=== PATIENT | male | born 1995 | race Caucasian/White ===

== ENCOUNTER 2016-05-09 14:38 | Inpatient (IN) | payer OTHER ==
--- NOTE | 2016-05-09 14:35 | EDPHY ---
H & P Constitutional: Initial Vital Signs Temperature (C) 37 C 05/09/16 15:10 Heart Rate 85 05/09/16 15:10 Respiratory Rate 17 05/09/16 15:10 Blood Pressure 174/101 H 05/09/16 15:10 O2 Sat (%) 96 05/09/16 15:10 O2 Delivery Mode Room Air Allergies/Adverse Reactions: No Known Allergies Allergy (Unverified 05/09/16 15:10) Home Medications: Medication Instructions Recorded NK [No Known Home Meds] 05/09/16 Medical Decision Making ED Course/Re-evaluation: CHIEF COMPLAINT: Psychiatric evaluation HISTORY OF PRESENT ILLNESS: The patient is a 21 year old male presenting with increased depression and suicidal thoughts. The patient is a [employer] student. He was at [facility], [facility] [place] [facility] today. He feels his depression is worse than usual and he has been having suicidal ideation. The patient used to see a psychiatrist his senior year of high school. He was placed on Respinol, but stopped taking it after he moved here for school. REVIEW OF SYSTEMS: A 10 point review of systems was performed and is negative with the exception of the elements mentioned in the history of present illness. PHYSICAL EXAM: General Appearance: Alert, well hydrated, appropriate, and non-toxic appearing. Head: Atraumatic without scalp tenderness or obvious injury Eyes: Pupils equal, round, reactive to light and accommodation, EOMI, no trauma , no injection. Ears: Clear bilaterally, no perforation, normal landmarks Nose: Atraumatic, no rhinorrhea, clear. Throat: There is no erythema or exudates, no lesions, normal tonsils, mucus membranes moist. Neck: Supple, 2+ carotid upstroke, nontender, no lymphadenopathy. Respiratory: No retractions, no distress, no wheezes, and no accessory muscle use. Lungs are clear to auscultation bilaterally. Cardiovascular: Regular rate and rhythm, no murmurs, rubs, or gallops. Bilateral carotid, radial, dorsalis pedis, and posterior tibial pulses intact. Good capillary refill all extremities. Gastrointestinal: Abdomen is soft, nontender, non-distended, no masses, no rebound, no guarding, no peritoneal signs. Musculoskeletal: Normal active ROM of all extremities, atraumatic. Neurological: Alert, appropriate, and interactive. The patient has normal DTRs and non-focal cranial nerves, motor, sensory, and cerebellar exam. Skin: No rashes, good turgor, no nodules on palpation. Past medical history: Depression Past surgical history: Denies Family history: Noncontributory Social history: Sophomore at . From [place]. DIFFERENTIAL DIAGNOSIS: The differential diagnosis for the patient's depression included but was not limited to functional and major depression, situational depression, medication side effect, drugs, and alcohol abuse. MEDICAL DECISION MAKING: Patient is in no acute distress and is hemodynamically stable. Patient has known history of psychiatric disorders and is here for evaluation. I evaluated the patient, he tells me he feels more depressed than usual with suicidal ideation. We are awaiting psychiatric team's evaluation. Report Scribed for: Lio Fritz Report Scribed by: Viky Muñiz Date of Report: 05/09/16 Time of Report: 15:25
[2016-05-09 15:22] LABS: % IMMATURE GRANULYOCYTES 0.4 % (0.0-1.1); ABSOLUTE IMMATURE GRANULOCYTES 0.04 10^3/uL (0.00-0.10); ADD DIFF? NO; ADD MORPH? NO; ADD SCAN? NO; ATYPICAL LYMPHOCYTE FLAG 0 (0-99); FRAGMENT RBC FLAG 0 (0-99); HEMOGLOBIN 16.8 g/dL (13.7-17.5); LEFT SHIFT FLG 0 (0-99); LIPEMIA HEMOLYSIS FLAG 90 (0-99); MEAN CELL HEMOGLOBIN CONCENTR. 34.3 g/dL (32.4-36.7); MEAN CELL VOLUME 87.5 fL (81.5-99.8); MEAN PLATELET VOLUME 12.1 fL (8.7-11.7); PLATELET CLUMPS FLAG 0 (0-99); PLATELET COUNT 217 10^3/uL (150-400); RED CELL DISTRIBUTION WIDTH 13.1 % (11.5-15.2)
[2016-05-09 15:59] LABS: ANION GAP 14 mEq/L (8-16); CALCIUM 9.7 mg/dL (8.5-10.4); CARBON DIOXIDE 25 mEq/l (22-31); CHLORIDE 103 mEq/L (97-110); CREATININE 0.8 mg/dL (0.7-1.3); ETHANOL SERUM < 10 mg/dL (0-10); GLOMERULAR FILTRATION RATE > 60; GLUCOSE 90 mg/dL (70-100); POTASSIUM 3.9 mEq/L (3.5-5.2); SODIUM 142 mEq/L (134-144)
[2016-05-09] MEDS ORDERED: NICOTINE POLACRILEX 2 MG GUM B PRN (21:35)
[2016-05-09] MEDS ORDERED: MAG HYDROX/AL HYDROX/SIMETH 30 ML UDCUP PO PRN (21:35)
[2016-05-09] MEDS ORDERED: diphenhydrAMINE 25 MG CAP PO PRN (21:35)
[2016-05-09] MEDS ORDERED: MAGNESIUM HYDROXIDE 30 ML UDCUP PO PRN (21:35)
[2016-05-09] MEDS ORDERED: ACETAMINOPHEN 325 MG TAB PO PRN (21:35)
[2016-05-09] MEDS ORDERED: LORazepam 0.5 MG TAB PO PRN (21:35)
[2016-05-10] MEDS: ESCITALOPRAM OXALATE 10 MG TAB PO SCH (12:18)
--- NOTE | 2016-05-10 15:01 | BCON ---
[f rep ] BEHAVIORAL HEALTH CONSULTATION INTERNAL MEDICINE CONSULTATION DATE OF CONSULTATION: 05/10/2016 REFERRING PHYSICIAN: Ade Barber MD REASON FOR CONSULTATION: Medical clearance for inpatient behavioral health stay. HISTORY OF PRESENT ILLNESS: Mr. Bañuelos came to the emergency department with increased depression and suicidal thoughts. He was evaluated by the mental health team and admitted for further psychiatric care. He currently is without any complaints. He says he is feeling better. PAST MEDICAL HISTORY: He denies any history of any medical conditions. He has had wisdom teeth extracted. MEDICATIONS: He was on no medications. ALLERGIES: There are no known drug allergies. SOCIAL HISTORY: He is a student at the [employer]. He lives with roommates. He is a regular marijuana user and tobacco smoker. FAMILY HISTORY: There is history of alcoholism and psychiatric illness, but there is no specific history of medical issues. REVIEW OF SYSTEMS: He denies pain, dyspnea, cough, fever, chills. He has had some weight loss while he has been feeling depressed, and otherwise a 10-point review of systems is negative. PHYSICAL EXAM: VITAL SIGNS: Blood pressure is 113/56, heart rate is 80, respiratory rate is 12, oxygen saturation is 95% on room air, temperature is 36.6 degrees centigrade. His weight is 72.6 kg for a body mass index of 20. GENERAL: This is a well-nourished, well-developed, thin man, appears his chronologic age, cooperative and in no acute distress. HEENT: Extraocular movements are intact. Pupils are equal, round and reactive to light. Mucous membranes are moist. Dentition is in good condition. NECK: Supple. HEART: Regular rate and rhythm with no murmurs, rubs, or gallops. LUNGS: Clear to auscultation bilaterally. ABDOMEN: Soft, nontender, nondistended with normoactive bowel sounds. EXTREMITIES: There is no cyanosis, clubbing, or edema. NEUROLOGIC: He is alert and oriented x3. Cranial nerves 2-12 are grossly intact. There is no focal weakness. Sensation is intact to light touch. LABORATORY STUDIES: Drawn in the emergency department, CBC revealed a slightly elevated white blood cell count of 9.76 with no left shift. Serum chemistry showed normal renal function and electrolytes. Toxicology screen in the serum was negative for ethyl alcohol, and the urine was non-negative for marijuana but negative for other substances of abuse. ASSESSMENT AND RECOMMENDATIONS: 1. Mental health issues. Pending further evaluation and management per Psychiatry and the mental health team. 2. Tobacco dependence syndrome. He reports that he would like to quit and he was encouraged to stop smoking tobacco. 3. Marijuana use disorder. He might benefit from specific substance abuse counseling. I see no medical contraindications to this patient's continued stay in the inpatient behavioral health unit or to any psychiatric medications or procedures. Thank you very much for involving me in the care of this patient. Please do not hesitate to contact me or the hospitalist service should there be need for further medical evaluation. /[id number]/MODL MTDD
[2016-05-11] MEDS: ESCITALOPRAM OXALATE 10 MG TAB PO SCH (08:20)
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
[2016-05-12] MEDS: ESCITALOPRAM OXALATE 10 MG TAB PO SCH (08:16)
[2016-05-13 06:19] VITALS: BP 153/64; PULSE 82; RESP 12; TEMP 97.4; O2SAT 97
[2016-05-13] MEDS: ESCITALOPRAM OXALATE 10 MG TAB PO SCH (08:27)
--- NOTE | 2016-05-13 13:25 | BDS ---
[f rep st] BEHAVIORAL HEALTH DISCHARGE SUMMARY REASON FOR ADMISSION: Patient is a 21-year-old male with a history of depression and recur rent suicidal ideation. He was admitted to the hospital after having gone to the CAPS program at the [facility] reporting suicidal thoughts. He was placed on an M1 hold and transferred for further evaluation. [facility] fo r further evaluation and treatment. A full description of the events preceding admission can be foun d in his admission history. ADMITTING DIAGNOSES: 1. Major depressive disorder, recurrent, severe, without psychosis. 2. Possible underlying dysthymic disorder. 3. Separation from natural supports. 4. Academic stress. ADMISSION PHYSICAL EXAMINATION: Performed by Dr. Natanael Neely shows no acute physical findings. ADMISSION LABORATORY: CBC showed a white count slightly up at 9.76, otherwise normal. Serum senior analytical chemist red were normal. TSH was slightly low at 0.399. Urine drug screen is positive for cannabis. HOSPITAL COURSE: Patient was admitted to the [facility] inpatient unit on an M1 hold. He was pleasant, cooperative, and engaging, and seemed to be genuinely motivated for change. He brendan cribed significant physiological symptoms of depression and was agreeable to a trial of Lexapro. Thi s was begun at 10 mg on the first day of his hospitalization. He tolerated this well with no side ef fects. Patient was engaged in individual, group, and milieu psychotherapies through the weekend, and stated on Friday when I returned that he very much appreciated and benefitted from these. He was seen by Avtar Barber in my absence and she concurred with the treatment plan. There was a statement that he may have been treated for bipolar disorder when he was in high school, though we did not obtain co nvincing historical information that would validate this, and he tolerated the medications well. CONDITION ON DISCHARGE: Stable. Patient's affect was significantly brighter, and he was having no t houghts of suicide. He was tolerating his medications well with no side effects. He was forward thi nking and hopeful. DISCHARGE MEDICATIONS: Lexapro 10 mg p.o. daily. DISPOSITION: Patient left the hospital with his family, who had come out from [place]. FOLLOWUP: With the [facility] per intensive care nurse arrangement. LEGAL COURSE: Patient was converted to a voluntary status at the expiration of his M1 hold. /[id number]/MODL
--- NOTE | 2016-05-13 13:40 | BAPA ---
[f rep st] ADMISSION PSYCHIATRIC ASSESSMENT DATE OF SERVICE: 05/10/2016 CHIEF COMPLAINT: "I just got overwhelmed with the thought of killing myself." HISTORY OF PRESENT ILLNESS: Patient is a 21-year-old male who was brought in by the police on an M1 hold after presenting to the CAPS Program at [facility] reporting suicidal idea tion. He is a student at in psychology and states that he has been struggling recently. He repor ts "I am always having thoughts of suicide, since I can remember." He states that these thoughts how ever have been increased over the past week for no reason that he can identify. He states that he fe els "overloaded" by academic stress and feels very lonely. He states that since coming to [place] f rom his home in [place] that he has been unable to establish friends. He did have a girlfrien d but they broke up and she remains a friend to him, though is his only social contact. He states th at he has been feeling "intense sadness" with frequent crying spells in which he states that he will become overwhelmed and literally drop to his knees and begin sobbing. He feels helpless and hopeless , homesick and misses his friends and family in [place]. He is also worried about the stress in his parents' marriage and that they may be . He sees them at times as being critical and is afraid that they will not support his decision to decrease his overall class load. He described his mood as "sad" and states that he has poor energy and motivation, poor attention and concentratio n, and poor appetite with a 10 pound weight loss over the last month. He states his sleep is inconsi stent, "too much or not enough." While he states he did not have a specific plan to harm himself, he felt unsafe to be out of the hospital and was asking for help. PAST PSYCHIATRIC HISTORY: The patient was prescribed Risperdal during his senior year of high school for what he believes was a diagnosis of bipolar disorder. He states he took this for 3-4 months, bu t they noticed no difference and had significant side effects. He has never had a trial of an antid epressant. He has had no previous psychiatric hospitalizations or suicide attempts. He did see a navyast briefly in high school. CURRENT MEDICATIONS: None. PAST MEDICAL HISTORY: Noncontributory. He denies any history of central nervous system disease. SOCIAL HISTORY: The patient was born and raised in [place]. He has one half-sister. His par ents continue to live in [place] [facility], and he states that he is "worried they may be splitting up." He states that his father has "anger issues" and is really controlling. He lives with 2 roommates, though does not know them well. He has trouble interacting with peers because "I don't think I have anything worthwhile to say." SUBSTANCE ABUSE HISTORY: Patient uses alcohol approximately 1 time per month and marijuana every oth er day. He states that he smokes 3-5 cigarettes per day. FAMILY HISTORY: The patient's father has been treated for depression and anxiety and has a paternal aunt who has schizophrenia. ADMISSION LABORATORY: CBC shows a white count slightly up at 9.76, otherwise normal. Serum chemistr ies are normal. TSH is slightly low at 0.399. Urine drug screen is positive for marijuana. MENTAL STATUS EXAMINATION: Reveals a tall, thin, though healthy-appearing male. He is wel l groomed, pleasant and cooperative and displays a calm and pleasant demeanor. His affect is blunted ,somewhat dysphoric,though stable and appropriate. His mood is described as "depressed." His though t process is linear and goal directed. His thought content reveals no evidence of psychosis. He is alert and oriented to person, place, time, and situation, and his sensorium is clear. He currently d enies any specific intent to harm himself,though continues to endorse active thoughts of suicide. Hi s intellect appears to be at least average as evidenced by his educational history,fund of knowledge, and vocabulary. His insight and judgment appear to be good. IMPRESSION: Major depressive disorder, recurrent, severe without psychosis. Possible dysthymic diso rder. Separation from natural supports. Social isolation. Academic stress. The patient is a pleasant 21-year-old male who presents at this time feeling overwhelmed an d lonely and unable to effectively cope with his current level of stress. Despite psychosocial issue s, it does appear he has many physiologic markers for depression. He states that he was diagnosed bi polar in high school and treated with Risperdal, though was unable to obtain any specific symptoms t hat would have led to this diagnosis, and I do not myself see evidence at this time of any bipolar sy mptoms by his current presentation or history. I did discuss with him the potential risks of taking antidepressants, if in fact he is bipolar, and he states that in his mind he has only ever struggled with depression and anxiety. I reviewed various options for him in regard to psychotropic medication s and he is agreeable to a trial of Lexapro. We reviewed the risks, benefits, and alternatives of th is including the suicidal adverse events warnings for young adults. Will start at 10 mg and monitor. We will also engage in individual, group, and milieu psychotherapies, possible family psychotherapy , and active discharge planning. Estimated length of stay is 3-5 days. /[id number]/MODL
== END 2016-05-13 12:55 | disposition home or self-care (01) | DRG 880 ==
LOC: BBEH 21:10
PROVIDERS: ADMIT Psychiatry & Neurology Behavioral Neurology & Neuropsychiatry; ATTEND Psychiatry & Neurology Psychiatry
DX: R45.851 Suicidal ideations (principal); F33.2 Major depressive disorder, recurrent severe without psychotic features; F34.1 Dysthymic disorder; F17.210 Nicotine dependence, cigarettes, uncomplicated; F12.90 Cannabis use, unspecified, uncomplicated
CPT/HCPCS: 80305; G0480

== ENCOUNTER 2016-06-10 14:53 | Emergency (ER) | payer OTHER ==
[2016-06-10 15:15] VITALS: RESP 16; O2SAT 96
--- NOTE | 2016-06-10 16:42 | EDPHY ---
H & P Stated Complaint: Hit head, NO LOC, jaw pain Time Seen by Provider: 06/10/16 16:35 HPI/ROS: CHIEF COMPLAINT: " I think I broke my jaw" HISTORY OF PRESENT ILLNESS: 21-year-old male arrives via private vehicle not a trauma activation complaining of acute left mandible on left temporal pain after he sustained a mechanical fall at home few hours ago. No alcohol or intoxicants use. Not a syncopal episode. No midline C-spine pain. His primary complaint is left temporal pain and left mandible pain, decreased range of motion of his TMJ, malalignment of dentition. No intraoral bleeding or taste of blood. No peripheral paresthesia, weakness, numbness. No diplopia. REVIEW OF SYSTEMS: A ten point review of systems was performed and is negative with the exception of the items mentioned in the HPI PAST MEDICAL/SURGICAL HISTORY: no anticoagulant use, no relevant medical/ surgical history SOCIAL HISTORY: denies alcohol use at time of incident PHYSICAL EXAM 1) GENERAL: Well-developed, well-nourished, alert and oriented. Answering questions appropriately. 2) HEAD: Normocephalic, left frontal temporal oral abrasion, hematoma, tenderness 3) HEENT: Pupils equal, round, reactive to light bilaterally. Negative Horners. Nasopharynx, oropharynx, clear. No deformity or angulation of nose. No septal hematoma. No rhinorrhea. No oral trauma. extraocular movements not elicit diplopia Ears bilaterally with normal tympanic membranes. No hemotympanum. No fluid or blood in the external auditory canal. No raccoon eyes. No Maher sign. Teeth are abnormally aligned by approximately 2 mm. Positive trismus. No intraoral lesions or bleeding noted. Tender to palpation left mandible . 4) NECK: No cervical collar is on. Posterior cervical spine is nontender, no stepoff, no effusion. Full range of motion which does not elicit any midline cervical spine pain, no posterior midline tenderness, no step-off. 5) LUNGS: Clear to auscultation bilaterally, no wheezes, no rhonchi, no retractions. No obvious signs of trauma. No chest wall pain. No flaring, no grunting. Moving symmetrically. No crepitus. 6) HEART: Regular rate and rhythm, 7) ABDOMEN: No guarding, no rebound, no focal tenderness, no peritoneal signs, no signs of trauma, no ecchymosis 8) MUSCULOSKELETAL: Moving all extremities, no focal areas of tenderness, no obvious trauma. 9) BACK: No midline vertebral tenderness, no fluctuance, no step-off, no obvious trauma, no visual or palpable abnormality. 10) SKIN: No laceration. No abrasion DIFFERENTIAL DIAGNOSIS: Not necessarily in any particular order, my differential diagnosis includes, but is not limited to, concussion, skull fracture, intraparenchymal contusion, subarachnoid, subdural and epidural hematoma, mandible fracture, mandible dislocation. The patient understands that this diagnosis is provisional and can never be 100% accurate. - Personal History Current Tetanus/Diphtheria Vaccine: Yes Current Tetanus Diphtheria and Acellular Pertussis (TDAP): Yes - Medical/Surgical History Hx Asthma: No Hx Chronic Respiratory Disease: No Hx Diabetes: No Hx Cardiac Disease: No Hx Renal Disease: No Hx Cirrhosis: No Hx Alcoholism: No Hx HIV/AIDS: No Hx Splenectomy or Spleen Trauma: No Other PMH: denies - Social History Smoking Status: Light smoker Constitutional: Initial Vital Signs Heart Rate 68 06/10/16 15:13 Respiratory Rate 16 06/10/16 15:13 Blood Pressure 122/76 H 06/10/16 15:13 O2 Sat (%) 96 06/10/16 15:13 O2 Delivery Mode Room Air Allergies/Adverse Reactions: No Known Allergies Allergy (Unverified 05/09/16 15:10) Home Medications: Medication Instructions Recorded Escitalopram Oxalate [Lexapro 10 10 mg PO DAILY #0 tab 05/13/16 MG] Hydrocodone/Acetaminophen [Lortab 7.5 ml PO Q6 #150 ml 06/10/16 10 mg-300 mg/15 ml Elxr] Medical Decision Making - Diagnostics Imaging: CT Scan of the Face Indication: Trauma. Technique: 0.625 mm thick collimated slices were obtained through the face from just below the mandible to above the frontal sinuses. The data was reconstructed in the sagittal and coronal plane. Dose reduction techniques were utilized. Findings: An acute left mandibular subcondylar fracture as 80 degrees of apex lateral angulation. The condylar fracture fragment is dislocated medially out of the temporomandibular joint. The remainder of the mandible is intact. The right temporomandibular joint is normally aligned. No other facial fractures. The paranasal sinuses are clear. The orbits are normal. No retrobulbar hematoma or proptosis. Impression: 1. Subcondylar fracture dislocation left side of mandible. 2. No other fracture. CT head negative for acute posttraumatic sequelae per Radiology interpretation. Images reviewed by myself ED Course/Re-evaluation: 6:05 p.m.: Phone consultation with on-call oral surgery Dr. Jose Casey, discussed the imaging results. He recommends patient be seen in the office tomorrow. Discussed with the patient he feels comfortable, patient does have means of transportation and lives close to Dr. Jose Casey office. Patient was re-evaluated with serial exams. There is no evidence of open fracture, no intraoral lesions or bleeding. Will be discharged with analgesia, recommended liquid diet. Discussed case with Dr Nagel in ER. Departure - Departure Disposition: Home, Routine, Self-Care Clinical Impression: Head injury Mandible fracture Qualifiers: Encounter type: initial encounter Fracture type: closed Mandible location: subcondylar process Laterality: left Qualified Code(s): S02.622A - Fracture of subcondylar process of left mandible, initial encounter for closed fracture Condition: Good Instructions: Jaw Fracture in Adults (ED), Head Injury (ED) Additional Instructions: ALTHOUGH THERE IS NO EVIDENCE OF SERIOUS HEAD INJURY AT THIS TIME, DELAYED SIGNS CAN APPEAR 24 TO 48 HOURS AFTER INJURY. WE RECOMMEND THAT YOU DESIGNATE A FRIEND OR FAMILY MEMBER TO OBSERVE YOU OVER THE NEXT FEW DAYS TO ENSURE THAT YOUR CONDITION IS PROGRESSING NORMALLY. PLEASE RETURN TO THE EMERGENCY DEPARTMENT (ED) IMMEDIATELY IF YOU HAVE INCREASED HEADACHE, PERSISTENT HEADACHE , VOMITING, WEAKNESS, CONFUSION OR VISUAL PROBLEMS. WE RECOMMEND THAT YOU DO NOT RESUME CONTACT SPORTS OR ACTIVITIES THAT TAKE COORDINATION OR BALANCE SUCH SKIING OR RIDING A BICYCLE UNTIL CLEARED TO DO SO BY YOUR DOCTOR OR BY A NEUROLOGIST. Referrals: Jose Casey, [facility] [Doctor of Dental Surgery] - 1 day without fail (When you call Dr. Jose Casey office, tell them that I spoke with him and he would like see you in the office tomorrow, FridayJune 11.) Prescriptions: Hydrocodone/Acetaminophen [Lortab 10 mg-300 mg/15 ml Elxr] 7.5 ml PO Q6 #150 ml
[2016-06-10 18:17] VITALS: BP 115/87; PULSE 71; TEMP 98.1
== END 2016-06-10 18:17 | disposition home or self-care (01) ==
DX: S02.622A Fracture of subcondylar process of left mandible, initial encounter for closed fracture (principal); S09.90XA Unspecified injury of head, initial encounter; F17.200 Nicotine dependence, unspecified, uncomplicated; W18.39XA Other fall on same level, initial encounter; Y92.009 Unspecified place in unspecified non-institutional (private) residence as the place of occurrence of the external cause; Y93.89 Activity, other specified